=== PATIENT | female | born 1935 | race Two or more races ===

== ENCOUNTER 2018-11-21 13:31 | Emergency (ER) | payer OTHER ==
[~2018-11-21] VITALS: Ht 160 cm; Wt 77.1 kg
[~2018-11-21 13:31] MED LIST: SEPTRA DS TABLE1 TAB PO; ULTRACET PO
== END 2018-11-21 20:20 | disposition home or self-care (01) ==
LOC: ER 13:31 → CPU-OBS 15:54 → ER 20:20
DX: B34.9 Viral infection, unspecified (principal); R07.89 Other chest pain; R06.02 Shortness of breath

== ENCOUNTER 2019-12-04 12:05 | Emergency (ER) | payer OTHER ==
[~2019-12-04] VITALS: Ht 162.6 cm; Wt 68.0 kg
[2019-12-04] MEDS ORDERED: COZAAR25 MG PO (13:01)
[2019-12-04] MEDS ORDERED: CARVEDILOL ER40 MG PO ×2 (13:01→13:03)
[2019-12-04] MEDS ORDERED: HUMULIN 70100 UNIT/2 SUBCUTANEO ×2 (13:01→13:03)
[2019-12-04] MEDS ORDERED: COUMADIN4 MG PO (13:02)
[2019-12-04] MEDS ORDERED: PEPCID AC20 MG PO (13:02)
[2019-12-04] MEDS ORDERED: SIMVASTATIN5 MG PO (13:02)
[2019-12-04] MEDS ORDERED: SYNTHROID88 MCG PO (13:02)
== END 2019-12-04 19:30 | disposition home or self-care (01) ==
LOC: ER 12:05
DX: J45.901 Unspecified asthma with (acute) exacerbation (principal)

== ENCOUNTER 2019-12-06 14:49 | Inpatient (IN) | payer OTHER ==
[~2019-12-06] VITALS: Ht 160 cm; Wt 77.1 kg
[~2019-12-06 14:49] MED LIST changes: +CARVEDILOL ER40 MG PO; +COUMADIN4 MG PO; +COZAAR25 MG PO; +HUMULIN 70100 UNIT/2 SUBCUTANEO; +PEPCID AC20 MG PO; +SIMVASTATIN5 MG PO; +SYNTHROID88 MCG PO
--- NOTE | 2019-12-06 15:22 | NUR ---
SE RECIBE PTE ALERTA Y ORIENTADA X3 ACOMPANADA DE FAMILIAR LA CUAL REFIERE TRAER A PTE PARA ADMISION DIRECTA, FAMILIAR CON DOCUEMTNACION EN MANO. SE REALIZAN S/V A PTE Y SE REALIZA EKG. PTE SE COLOCA EN AREA DE SECC. K.
== END 2019-12-15 11:46 | disposition home or self-care (01) | DRG 191 ==
LOC: ER 14:49 → SEC-K 16:03 → MEDJ 16:03
PROVIDERS: ADMIT Internal Medicine
DX: J44.1 Chronic obstructive pulmonary disease with (acute) exacerbation (principal); I48.20 Chronic atrial fibrillation, unspecified; J10.1 Influenza due to other identified influenza virus with other respiratory manifestations; E03.9 Hypothyroidism, unspecified; Z95.810 Presence of automatic (implantable) cardiac defibrillator; E11.42 Type 2 diabetes mellitus with diabetic polyneuropathy; E11.51 Type 2 diabetes mellitus with diabetic peripheral angiopathy without gangrene; I27.21 Secondary pulmonary arterial hypertension; Z79.01 Long term (current) use of anticoagulants; I69.320 Aphasia following cerebral infarction

== ENCOUNTER 2020-12-29 12:06 | Emergency (ER) | payer OTHER ==
[~2020-12-29] VITALS: Ht 149.9 cm; Wt 78.0 kg
[2020-12-29] MEDS ORDERED: XARELTO10 MG (12:23)
== END 2020-12-29 17:23 | disposition home or self-care (01) ==
LOC: ER 12:06
DX: I16.0 Hypertensive urgency (principal); I10 Essential (primary) hypertension; J44.9 Chronic obstructive pulmonary disease, unspecified; Z03.818 Encounter for observation for suspected exposure to other biological agents ruled out

== ENCOUNTER 2021-04-14 09:04 | Emergency (ER) | payer OTHER ==
[~2021-04-14] VITALS: Ht 162.6 cm; Wt 74.8 kg
[~2021-04-14 09:04] MED LIST changes: +XARELTO10 MG
[2021-04-14] MEDS ORDERED: COZAAR25 MG (09:24)
[2021-04-14] MEDS ORDERED: PEPCID AC20 MG PO (09:24)
[2021-04-14] MEDS ORDERED: CARVEDILOL25 M1 (09:24)
[2021-04-14] MEDS ORDERED: HUMULIN 70100 UNIT/2 SUBCUTANEO (09:24)
[2021-04-14] MEDS ORDERED: SYNTHROID88 MCG (09:25)
[2021-04-14] MEDS ORDERED: XARELTO10 MG (09:25)
[2021-04-14] MEDS ORDERED: SIMVASTATIN5 MG PO (09:25)
== END 2021-04-14 17:03 | disposition home or self-care (01) ==
LOC: ER
DX: K57.30 Diverticulosis of large intestine without perforation or abscess without bleeding (principal); K62.5 Hemorrhage of anus and rectum

== ENCOUNTER 2021-04-20 08:46 | Emergency (ER) | payer OTHER ==
[~2021-04-20] VITALS: Ht 162.6 cm; Wt 74.8 kg
[~2021-04-20 08:46] MED LIST changes: +CARVEDILOL25 M1; +COZAAR25 MG; +SYNTHROID88 MCG
== END 2021-04-20 14:09 | disposition home or self-care (01) ==
LOC: ER 08:46
DX: J45.901 Unspecified asthma with (acute) exacerbation (principal)

== ENCOUNTER 2021-08-16 11:15 | Emergency (ER) | payer OTHER ==
[~2021-08-16] VITALS: Ht 160 cm; Wt 72.6 kg
[2021-08-16] MEDS ORDERED: SYMBICORT 16010.2 GM (11:38)
== END 2021-08-16 14:02 | disposition home or self-care (01) ==
LOC: ER 11:15
DX: G24.3 Spasmodic torticollis (principal)